=== PATIENT | female | born 1965 | race African-American/Black ===

== ENCOUNTER 2021-07-19 04:59 | Day surgery (SDC) | payer OTHER ==
[2021-07-18 11:39] VITALS: BMI 29.9
[2021-07-19 13:02] VITALS: BP 107/51; PULSE 62; TEMP 98
== END 2021-07-19 13:03 | disposition home or self-care (01) ==
LOC: JASU-ENDO 04:59
PROVIDERS: ATTEND Internal Medicine Gastroenterology
PROC: 0DBK8ZX Excision of Ascending Colon, Via Natural or Artificial Opening Endoscopic, Diagnostic (ICD-10-PCS; principal; 2021-07-19 11:30)
DX: Z12.11 Encounter for screening for malignant neoplasm of colon (principal); D12.2 Benign neoplasm of ascending colon; K63.89 Other specified diseases of intestine; K59.00 Constipation, unspecified
CPT/HCPCS: 88305-TC